=== PATIENT | female | born 1950 | race Caucasian/White ===

== ENCOUNTER 2022-08-12 11:16 | Outpatient (CLI) | payer OTHER ==
[~2022-08-12 11:16] MED LIST: SEPTRA DS TABLE1 TAB PO
== END 2022-08-12 11:19 | disposition home or self-care (01) ==
LOC: NUCLEAR 11:16
DX: M25.571 Pain in right ankle and joints of right foot (principal); M25.471 Effusion, right ankle

== ENCOUNTER 2022-08-15 10:57 | Outpatient (CLI) | payer OTHER | END 2022-08-15 10:58 | disposition home or self-care (01) | LOC: NUCLEAR 10:57 | DX: M25.471 Effusion, right ankle (principal); M25.571 Pain in right ankle and joints of right foot ==